=== PATIENT | male | born 1990 | race Caucasian/White ===

== ENCOUNTER 2018-03-30 15:38 | Observation (INO) ==
[2018-03-30] MEDS ORDERED: Acetaminophen 325 MG TABLET PO PRN (15:57)
[2018-03-30] MEDS ORDERED: Naloxone 0.4 MG/ML INJ IVP PRN (15:57)
[2018-03-30] MEDS ORDERED: Ondansetron 4 MG/2 ML VIAL IVP PRN (15:57)
[2018-03-30 16:56] LABS: Basophils # 0.1 K/mcL (0.0-0.2); Basophils % 0.6 %; Eosinophils # 0.2 K/mcL (0.0-0.6); Eosinophils % 1.4 %; Hematocrit 38.4 % (37.5-50.1); Hemoglobin 13.3 g/dL (12.9-16.9); Immature Granulocytes % 0.6 % (0-4); Lymphocytes # 1.1 K/mcL (0.6-4.6); Lymphocytes % 9.4 %; Mean Corpuscular HGB Conc 34.6 g/dL (31.6-35.5); Mean Corpuscular Hemoglobin 29.6 pg (28.0-33.3); Mean Corpuscular Volume 85.5 fL (83.0-100.0); Mean Platelet Volume 11.1 fL (9.4-12.4); Monocytes # 0.6 K/mcL (0.0-1.3); Monocytes % 5.1 %; Neutrophils # 9.7 K/mcL (1.6-8.9); Platelet Count 258 K/mcL (140-400); Red Blood Count 4.49 M/mcL (4.19-5.50); Red Cell Distribution Width 11.9 % (11.5-14.5); Segmented Neutrophils % 82.9 %
[2018-03-30] MEDS: 0.9 % Sodium Chloride 1,000 ML IVC SCH (16:58)
[2018-03-30] MEDS: Piperacillin/Tazobactam 3.375 GM in 0.9 % Sodium Chloride Mini Bag 100 ML IVPB SCH (16:59)
[2018-03-30 17:09] LABS: BUN/Creatinine Ratio 10 (6-26); Blood Urea Nitrogen 14 mg/dL (6-20); Calcium 9.9 mg/dL (8.6-10.3); Carbon Dioxide 26 mEq/L (23-29); Chloride 105 mEq/L (98-107); Glucose 84 mg/dL (70-105); Osmolality,Calculated 286 (280-300); Potassium 3.9 mEq/L (3.5-5.1); Sodium 138 mEq/L (136-145); eGFR For African Americans > 60 (> 60); eGFR For Non-African Americans > 60 (> 60)
--- NOTE | 2018-03-30 17:33 | Urology History & Physical ---
Date of Encounter: 03/30/18 Time of Encounter: 17:31 Assessment and Plan (1) Scrotal hematoma Current Visit: Yes Status: Acute 27-year-old man with a possible hematoma after vasectomy. I will order a scrotal ultrasound further assessment. In addition he may have epididymoorchitis. I will start him on Zosyn. If he has evidence of an abscess , we may need to proceed with incision and drainage of the scrotal abscess. He should continue with scrotal support. We will manage his pain with oral medications. I answered all of his questions. (2) Orchitis Current Visit: Yes Status: Acute History of Present Illness Chief complaint: scrotal swelling HPI: Mr. Paul is a 27 year old male who is status post bilateral vasectomy from 03/12/2018. He initially did well after the procedure, but he began to develop left scrotal swelling. He was seen by my partner and was started on antibiotic. He says in the last 2 days he is developed worsening left-sided swelling. He is having severe tenderness. He was seen in the office today. He was then admitted for IV antibiotic and further workup. He denies any fevers or chills. He denies any drainage from his wound. The swelling is very uncomfortable. Past Med Surg Social Fam HX - Past Medical History Medical history: seizures Additional medical history: Epilepsy. Psychiatric history: no psych history - Past Surgical History Surgical History: tonsilectomy, vasectomy Additional surgical history: Hydrocele, left forearm surgery, adnoid removal - Social History Smoking Status: Never smoker Smokeless Tobacco Status: Yes Alcohol use: none Drug use: none - Family History Mother Hx Family Cardiac Disorders: Yes Medications and Allergies Famotidine [Pepcid] 20 mg PO BID #14 tablet 04/01/16 [Rx] Ibuprofen [Motrin] 600 mg PO Q8HR #20 tab 10/06/16 [Rx] SUMAtriptan succinate [Imitrex] 25 mg PO Q12HR #3 tablet 02/02/17 [Rx] Permethrin [Elimite] 60 appl TP ONCE #60 g 07/28/17 [Rx] Cyclobenzaprine [Flexeril] 10 mg PO BID PRN #14 tablet 11/05/17 [Rx] 3 Allergy/AdvReac Type Severity Reaction Status Date / Time No Known Allergies Allergy Verified 02/20/18 06:11 Review of Systems - Constitutional no chills, no fever(s) - EENT Nose, mouth and throat: no dizziness - Cardiovascular no chest pain - Respiratory no dyspnea - Gastrointestinal no nausea, no vomiting - Genitourinary difficulty urinating, genital pain, no flank pain, no hematuria - Musculoskeletal no back pain - Integumentary no erythema, no rash - Neurological no weakness - Psychiatric no suicidal ideation - Hematologic/Lymphatic no easy bleeding - Allergic/Immunologic no wheezing Exam Initial Vital Signs Temp Pulse Resp BP Pulse Ox 98.7 F 88 15 126/87 97 03/30/18 16:15 03/30/18 16:15 03/30/18 16:15 03/30/18 16:15 03/30/18 16:15 - General physical appearance Present: well developed, well nourished, no distress - Eyes Absent: icteric - ENT Present: normal nares - Neck Present: trachea midline - Respiratory Present: normal respiratory effort - Abdomen Abdomen: Present: soft - Genitourinary other (Normal penis. Left hemiscrotum is indurated with large swelling above the left testicle. There is golfball size swelling above the right testicle. No evidence of fluctuance is noted.) - Neurologic Present: normal coordination - Musculoskeletal Present: normal gait Urology Results - Labs 03/30/18 16:19 03/30/18 16:19 Abnormal lab results WBC 11.7 K/mcL (4.3-11.1) H 03/30/18 16:19 Neutrophils # 9.7 K/mcL (1.6-8.9) H 03/30/18 16:19 Creatinine 1.42 mg/dL (0.70-1.30) H 03/30/18 16:19 Diabetes panel 03/30/18 Range/Units 16:19 Sodium 138 (136-145) mEq/L Potassium 3.9 (3.5-5.1) mEq/L Chloride 105 (98-107) mEq/L Carbon Dioxide 26 (23-29) mEq/L BUN 14 (6-20) mg/dL Creatinine 1.42 H (0.70-1.30) mg/dL Glucose 84 (70-105) mg/dL Calcium 9.9 (8.6-10.3) mg/dL Calcium panel 03/30/18 Range/Units 16:19 Calcium 9.9 (8.6-10.3) mg/dL Pituitary panel 03/30/18 Range/Units 16:19 Sodium 138 (136-145) mEq/L Potassium 3.9 (3.5-5.1) mEq/L Chloride 105 (98-107) mEq/L Carbon Dioxide 26 (23-29) mEq/L BUN 14 (6-20) mg/dL Creatinine 1.42 H (0.70-1.30) mg/dL Glucose 84 (70-105) mg/dL Calcium 9.9 (8.6-10.3) mg/dL Adrenal panel 03/30/18 Range/Units 16:19 Sodium 138 (136-145) mEq/L Potassium 3.9 (3.5-5.1) mEq/L Chloride 105 (98-107) mEq/L Carbon Dioxide 26 (23-29) mEq/L BUN 14 (6-20) mg/dL Creatinine 1.42 H (0.70-1.30) mg/dL Glucose 84 (70-105) mg/dL Calcium 9.9 (8.6-10.3) mg/dL All other labs normal.
[2018-03-30] MEDS: *HR* OxyCODONE Immed Rel 5 MG TABLET PO PRN (18:14)
[2018-03-30] MEDS: OXYCODONE Oral CONC 10 MG/0.5 ML ORAL.SYG SL PRN (22:48)
[2018-03-31] MEDS: Piperacillin/Tazobactam 3.375 GM in 0.9 % Sodium Chloride Mini Bag 100 ML IVPB SCH ×4 (00:06→23:57)
[2018-03-31] MEDS: *HR* OxyCODONE Immed Rel 5 MG TABLET PO PRN ×3 (04:04→17:59)
[2018-03-31] MEDS: 0.9 % Sodium Chloride 1,000 ML IVC SCH ×2 (04:05→15:25)
--- NOTE | 2018-03-31 07:56 | Urology Progress Note ---
Date of Encounter: 03/31/18 Time of Encounter: 07:53 - Assessment and Plan (1) Orchitis Current Visit: Yes Status: Acute (2) Scrotal abscess Current Visit: Yes Status: Acute Assessment and plan: 27-year-old man with a scrotal abscess after vasectomy. I recommend proceeding with an incision and drainage of the scrotal abscess. He was informed of the risks of the surgery which include but are not limited to bleeding, infection, injury to other structures, need for further procedures, pain, risks otherwise unforeseen, and the risk of anesthesia. He is willing to proceed. We will continue Zosyn. (3) Nicotine dependence Current Visit: Yes Status: Acute Assessment and plan: I will order a nicotine patch for him today. I advised him to stop using chewing tobacco. Qualifiers: Nicotine product type: chewing tobacco Qualified Code(s): F17.220 - Nicotine dependence, chewing tobacco, uncomplicated Progress Note Narrative: 27-year-old man status post vasectomy presented with a scrotal abscess. I reviewed the ultrasound yesterday. He says his pain is adequately controlled. He is still having significant swelling. Objective Initial Vital Signs Temp Pulse Resp BP Pulse Ox 98.7 F 88 15 126/87 97 03/30/18 16:15 03/30/18 16:15 03/30/18 16:15 03/30/18 16:15 03/30/18 16:15 - General physical appearance Present: well developed, well nourished, no distress - Respiratory Absent: normal respiratory effort - Abdomen Present: soft - Genitourinary Present: other (normal penis, left hemiscrotum is indurated. No fluctuance is noted. Right hemiscrotum is mildly swollen.) - Labs 03/30/18 16:19 03/30/18 16:19 Diabetes panel 03/30/18 Range/Units 16:19 Sodium 138 (136-145) mEq/L Potassium 3.9 (3.5-5.1) mEq/L Chloride 105 (98-107) mEq/L Carbon Dioxide 26 (23-29) mEq/L BUN 14 (6-20) mg/dL Creatinine 1.42 H (0.70-1.30) mg/dL Glucose 84 (70-105) mg/dL Calcium 9.9 (8.6-10.3) mg/dL Calcium panel 03/30/18 Range/Units 16:19 Calcium 9.9 (8.6-10.3) mg/dL Pituitary panel 03/30/18 Range/Units 16:19 Sodium 138 (136-145) mEq/L Potassium 3.9 (3.5-5.1) mEq/L Chloride 105 (98-107) mEq/L Carbon Dioxide 26 (23-29) mEq/L BUN 14 (6-20) mg/dL Creatinine 1.42 H (0.70-1.30) mg/dL Glucose 84 (70-105) mg/dL Calcium 9.9 (8.6-10.3) mg/dL Adrenal panel 03/30/18 Range/Units 16:19 Sodium 138 (136-145) mEq/L Potassium 3.9 (3.5-5.1) mEq/L Chloride 105 (98-107) mEq/L Carbon Dioxide 26 (23-29) mEq/L BUN 14 (6-20) mg/dL Creatinine 1.42 H (0.70-1.30) mg/dL Glucose 84 (70-105) mg/dL Calcium 9.9 (8.6-10.3) mg/dL Consult Discharge Plan - Plan Referrals: Leon Adams DO [Primary Care Provider] -
[2018-03-31] MEDS: Nicotine 21 MG PATCH.TD24 TD SCH (09:26)
[2018-03-31] MEDS: OXYCODONE Oral CONC 10 MG/0.5 ML ORAL.SYG SL PRN ×2 (11:52→20:37)
[2018-03-31 19:18] LABS: Bilirubin,Urine Negative (Negative); Blood,Urine Negative (Negative); Clarity,Urine Clear (Clear); Color,Urine Yellow (Yellow); Glucose,Urine (UA) Normal (Normal); Ketones,Urine Negative (Negative); Leukocyte Esterase,Urine Negative (Negative); Nitrite,Urine Negative (Negative); Protein,Urine Negative (Neg-Trace); Specific Gravity,Urine 1.013 (1.010-1.025); Urobilinogen,Urine Normal (Normal)
[2018-04-01] MEDS: 0.9 % Sodium Chloride 1,000 ML IVC SCH ×2 (01:33→12:30)
[2018-04-01] MEDS: *HR* OxyCODONE Immed Rel 5 MG TABLET PO PRN ×4 (02:26→21:01)
--- NOTE | 2018-04-01 07:07 | Urology Progress Note ---
Date of Encounter: 04/01/18 Time of Encounter: 07:05 - Assessment and Plan (1) Orchitis Current Visit: Yes Status: Acute (2) Scrotal abscess Current Visit: Yes Status: Acute Assessment and plan: 27-year-old man with concern for left scrotal abscess after vasectomy. We will proceed with an incision and drainage today. He is aware of all risks. Continue Zosyn. (3) Nicotine dependence Current Visit: Yes Status: Acute Qualifiers: Nicotine product type: chewing tobacco Qualified Code(s): F17.220 - Nicotine dependence, chewing tobacco, uncomplicated Progress Note Narrative: 27-year-old man with concern for left scrotal abscess after a vasectomy is seen today. Surgery was postponed yesterday secondary to OR availability. He is on the schedule today. No fevers overnight. Objective Initial Vital Signs Temp Pulse Resp BP Pulse Ox 98.7 F 88 15 126/87 97 03/30/18 16:15 03/30/18 16:15 03/30/18 16:15 03/30/18 16:15 03/30/18 16:15 - General physical appearance Present: well developed, well nourished, no distress - Respiratory Present: normal respiratory effort - Abdomen Present: soft - Genitourinary Present: other (circumcised, improved swelling on the right side. Left side still indurated and swollen.) - Labs 03/30/18 16:19 03/30/18 16:19 Consult Discharge Plan - Plan Referrals: Leon Adams DO [Primary Care Provider] -
[2018-04-01] MEDS: Piperacillin/Tazobactam 3.375 GM in 0.9 % Sodium Chloride Mini Bag 100 ML IVPB SCH ×2 (08:03→18:00)
[2018-04-01] MEDS: Nicotine 21 MG PATCH.TD24 TD SCH (08:04)
[2018-04-01] MEDS ORDERED: OXYCODONE Oral CONC 10 MG/0.5 ML ORAL.SYG SL PRN (14:34)
[2018-04-01] MEDS ORDERED: *HR* OxyCODONE Immed Rel 5 MG TABLET PO PRN ×2 (14:34→16:51)
[2018-04-01] MEDS ORDERED: *HR* FentaNYL (PF) 100 MCG/2 ML VIAL ONE (15:51)
[2018-04-01] MEDS ORDERED: *HR* Midazolam HCl 2 MG/2 ML VIAL ONE (15:51)
[2018-04-01] MEDS ORDERED: *HR* Propofol 200 MG/20 ML VIAL IVP ONE (15:52)
[2018-04-01] MEDS ORDERED: Lidocaine -MPF 2% 2 ML VIAL ONE (15:57)
--- NOTE | 2018-04-01 16:10 | Anesthesia Evaluation PreOp ---
Date of Encounter: 04/01/18 Time of Encounter: 16:10 - Past History Planned Operation: Incision Drainage Scrotal Abscess Cardiac History: Denies any Significant Hx Pulmonary History: Smoker DIGITAL DATA ANALYST History: Denies Any Significant HX Other Medical History: Denies Any Significant HX Anesthesia History: No Prior Anesthetic Complications Alcohol Use: none Drug use: none Medications and Allergies Ciprofloxacin HCl [Cipro] 500 mg PO BID 03/31/18 [History] 3 Allergy/AdvReac Type Severity Reaction Status Date / Time No Known Allergies Allergy Verified 02/20/18 06:11 - Meds/Allergy Pre-op Review Medications Reviewed: Yes Allergies Reviewed: Yes Beta Blockers on Current Med List: No Anesthesia Results - Labs 03/30/18 16:19 03/30/18 16:19 Laboratory Tests 03/30/18 03/30/18 16:19 16:19 Hgb 13.3 Hct 38.4 Plt Count 258 Sodium 138 Potassium 3.9 BUN 14 Creatinine 1.42 H Anesthesia Exam Vital Signs/O2 Sat/Glucose, Most Current Temp Pulse Resp BP Pulse Ox 04/01/18 14:01 98.3 F 86 16 119/79 95 Height: 5'11 Weight: 180 lbs NPO (# of Hours): MN Pain Scale: 0 - HEENT Pupil (Motor): Pupils equal, EOMI Mallampati: II Teeth: Normal Oral Opening: Greater than 3 - DIGITAL DATA ANALYST LOC: Oriented DIGITAL DATA ANALYST Motor: Normal RUE, Normal LUE, Normal RLE, Normal LLE, Normal Face DIGITAL DATA ANALYST Sensory: Normal: RUE, LUE, RLE, LLE, Face - Cardiac Rhythm: Regular Murmur: None JVD: No Carotid Bruit: No - Pulmonary Breath Sounds: bilateral Clear Respiratory Effort: Symmetrical Anesthesia Assess/Plan ASA Score: 2 Modified [place] Scale for Level of Consciousness: Cooperative, oriented, and tranquil Anesthetic Plan: General Monitoring Plan: Standard Monitors Recovery Plan: PACU (Discussed GA, agrees to proceed)
[2018-04-01] MEDS ORDERED: Famotidine 20 MG/2 ML VIAL ONE (16:11)
[2018-04-01] MEDS ORDERED: Ondansetron 4 MG/2 ML VIAL ONE (16:23)
[2018-04-01] MEDS ORDERED: Dexamethasone 4 MG/ML VIAL ONE (16:23)
[2018-04-01] MEDS ORDERED: *HR* Morphine 10 MG/ML VIAL ONE (16:33)
[2018-04-01] MEDS ORDERED: Acetaminophen IV 1,000 MG/100 ML INFUS..BTL ONE (16:34)
--- NOTE | 2018-04-01 16:47 | Operative Note ---
Date of procedure: 04/01/18 Pre-op diagnosis: Scrotal abscess Post-op diagnosis: same Procedure: Incision and drainage of scrotal abscess Implants: Quarter-inch packing strips Complications: None Anesthesia: GETA Surgeon: Gadiel Sandoval Was there an pediatric dental assistant present: No Estimated blood loss (cc): 5 Specimen: Aerobic and anaerobic cultures Condition: stable Disposition: PACU Procedure in Detail: Indications: Mr. Paul is a 27-year-old gentleman who has a history of undergoing a vasectomy. He developed significant left hemiscrotal swelling. He was admitted for IV antibiotic and a ultrasound showed concern for abscess. He elected to undergo a incision and drainage of scrotal abscess. He is aware of the risks of the procedure including but not limited to bleeding, infection, injury to other structures, loss of testicle, need for further procedures, and the risk of anesthesia. He is willing to proceed. Procedure in detail: After informed consent was obtained Mr. Paul was brought back to the operating room and placed in the supine position. A timeout was performed. General anesthesia was then administered and a LMA was placed. He was then placed in the lithotomy position. His genitalia were prepped and draped in the usual sterile fashion. A 1 cm incision was made over top of the fluctuant area, just to the left and lateral the median raphae. The pocket was probed with the hemostats. Purulent fluid emanated out. A sample of this was sent for culture. I aspirated all the pus. The wound was irrigated. I was able to insert my finger and break up any adhesions. Hemostasis was achieved from the skin using cautery. The wound was packed with a quarter inch packing strips. Dry sterile dressings were applied a jockstrap was applied to the wound as well. The patient was then awakened from general anesthesia and brought to the recovery room in good condition. All sponge, needle, and instrument counts were correct.
[2018-04-01] MEDS ORDERED: *HR* Morphine 2 MG/ML SYRINGE IVP PRN (16:51)
[2018-04-01] MEDS ORDERED: *HR* Promethazine 25 MG/ML VIAL IVP PRN (16:51)
--- NOTE | 2018-04-01 17:26 | Anesthesia Evaluation Post Op ---
Date of Encounter: 04/01/18 Time of Encounter: 17:30 - Vital Signs Vital Signs: Vital Signs/O2 Sat/Glucose, Most Current Temp Pulse Resp BP Pulse Ox 04/01/18 17:26 97.6 F 86 16 118/84 94 04/01/18 17:16 97.6 F 91 16 125/85 94 04/01/18 17:06 97.4 F L 90 16 116/85 99 04/01/18 14:01 98.3 F 86 16 119/79 95 - Lungs Lungs: Clear Ascult./Percussion - Airway Airway: Non-obstructed - Cardiovascular Regular Rate - Mental Status Mental Status: Alert & Oriented, Answers Appropriately - Pain Pain Scale: 1 - Nausea Vomiting Nausea Vomiting: Not Present - Hydration Hydration: Ice chips - Discharge PostOp Status: Transfer Patient to floor
[2018-04-01] MEDS ORDERED: Naloxone 0.4 MG/ML INJ IVP PRN (17:58)
[2018-04-01] MEDS ORDERED: Acetaminophen 325 MG TABLET PO PRN (17:58)
[2018-04-01] MEDS ORDERED: Ondansetron 4 MG/2 ML VIAL IVP PRN (17:58)
[2018-04-01] MEDS: OXYCODONE Oral CONC 10 MG/0.5 ML ORAL.SYG SL PRN (18:37)
[2018-04-02] MEDS: OXYCODONE Oral CONC 10 MG/0.5 ML ORAL.SYG SL PRN ×4 (01:20→18:12)
[2018-04-02] MEDS: Piperacillin/Tazobactam 3.375 GM in 0.9 % Sodium Chloride Mini Bag 100 ML IVPB SCH ×3 (01:20→18:11)
[2018-04-02 01:57] LABS: Hematocrit 42.9 % (37.5-50.1); Mean Corpuscular HGB Conc 34.7 g/dL (31.6-35.5); Mean Corpuscular Hemoglobin 29.7 pg (28.0-33.3); Mean Corpuscular Volume 85.5 fL (83.0-100.0); Mean Platelet Volume 10.8 fL (9.4-12.4); Platelet Count 292 K/mcL (140-400); Red Blood Count 5.02 M/mcL (4.19-5.50); Red Cell Distribution Width 11.5 % (11.5-14.5)
[2018-04-02 02:16] LABS: BUN/Creatinine Ratio 9 (6-26); Blood Urea Nitrogen 10 mg/dL (6-20); Calcium 9.6 mg/dL (8.6-10.3); Carbon Dioxide 28 mEq/L (23-29); Chloride 102 mEq/L (98-107); Glucose 153 mg/dL (70-105); Osmolality,Calculated 286 (280-300); Potassium 4.4 mEq/L (3.5-5.1); Sodium 137 mEq/L (136-145); eGFR For African Americans > 60 (> 60); eGFR For Non-African Americans > 60 (> 60)
[2018-04-02 02:21] LABS: Hemoglobin 14.9 g/dL (12.9-16.9)
--- NOTE | 2018-04-02 07:26 | Urology Progress Note ---
Date of Encounter: 04/02/18 Time of Encounter: 07:24 - Assessment and Plan (1) Scrotal abscess Current Visit: Yes Status: Acute Assessment and plan: s/p scrotal I&D. POD #1. 1. Anticipate dressing change this afternoon at around 12-12:30pm. Will request pain medication to be given prior to dressing change. 2. Continue zosyn. 3. Anticipate d/c home tomorrow. 4. Will have nurses change dressing tomorrow morning and provide patient with teaching and supplies. (2) Nicotine dependence Current Visit: Yes Status: Acute Assessment and plan: Continue nicotine patch. Qualifiers: Nicotine product type: chewing tobacco Qualified Code(s): F17.220 - Nicotine dependence, chewing tobacco, uncomplicated Progress Note Narrative: Doing well. Pain is more intense this morning. Pain medication has been requested. Tolerating diet. Objective Initial Vital Signs Temp Pulse Resp BP Pulse Ox 98.7 F 88 15 126/87 97 03/30/18 16:15 03/30/18 16:15 03/30/18 16:15 03/30/18 16:15 03/30/18 16:15 - General physical appearance Present: well developed, well nourished, no distress - Respiratory Present: normal respiratory effort - Abdomen Present: soft - Genitourinary Present: other (Packing in place. Mild staining of gauze overtop of wound.) - Integumentary Present: no rash - Labs 04/02/18 01:35 04/02/18 01:35 Diabetes panel 04/02/18 Range/Units 01:35 Sodium 137 (136-145) mEq/L Potassium 4.4 (3.5-5.1) mEq/L Chloride 102 (98-107) mEq/L Carbon Dioxide 28 (23-29) mEq/L BUN 10 (6-20) mg/dL Creatinine 1.12 (0.70-1.30) mg/dL Glucose 153 H (70-105) mg/dL Calcium 9.6 (8.6-10.3) mg/dL Calcium panel 04/02/18 Range/Units 01:35 Calcium 9.6 (8.6-10.3) mg/dL Pituitary panel 04/02/18 Range/Units 01:35 Sodium 137 (136-145) mEq/L Potassium 4.4 (3.5-5.1) mEq/L Chloride 102 (98-107) mEq/L Carbon Dioxide 28 (23-29) mEq/L BUN 10 (6-20) mg/dL Creatinine 1.12 (0.70-1.30) mg/dL Glucose 153 H (70-105) mg/dL Calcium 9.6 (8.6-10.3) mg/dL Adrenal panel 04/02/18 Range/Units 01:35 Sodium 137 (136-145) mEq/L Potassium 4.4 (3.5-5.1) mEq/L Chloride 102 (98-107) mEq/L Carbon Dioxide 28 (23-29) mEq/L BUN 10 (6-20) mg/dL Creatinine 1.12 (0.70-1.30) mg/dL Glucose 153 H (70-105) mg/dL Calcium 9.6 (8.6-10.3) mg/dL - VTE Documentation of Mechanical Device: Intermittent pneumatic compression device Consult Discharge Plan - Plan Referrals: Leon Adams DO [Primary Care Provider] -
[2018-04-02] MEDS: Nicotine 21 MG PATCH.TD24 TD SCH (07:58)
[2018-04-02] MEDS: *HR* OxyCODONE Immed Rel 5 MG TABLET PO PRN (10:45)
[2018-04-03] MEDS: Piperacillin/Tazobactam 3.375 GM in 0.9 % Sodium Chloride Mini Bag 100 ML IVPB SCH ×2 (00:40→08:47)
[2018-04-03 06:34] VITALS: BP 113/72
--- NOTE | 2018-04-03 08:30 | Discharge Summary ---
Orders not resulted at time of discharge: Pending orders 03/31/18 19:05 Culture,Urine [RM] Routine 04/01/18 16:35 Culture,Anaerobic [RM] Routine Culture,Wound [RM] Routine Date of Encounter: 04/03/18 Time of Encounter: 08:36 - Discharge Diagnosis (1) Scrotal abscess Priority: Primary Status: Acute (2) Nicotine dependence Priority: Secondary Status: Acute Qualifiers: Nicotine product type: chewing tobacco Substance use status: uncomplicated Qualified Code(s): F17.220 - Nicotine dependence, chewing tobacco, uncomplicated - Hospital Course Hospital course: Mr. Paul is a 27 year old male who underwent a vasectomy previously. He developed left hemiscrotal swelling. A scrotal ultrasound showed evidence of abscess. On 04/01/2018 he underwent an incision and drainage of his scrotal abscess. Cultures grew out Staphylococcus aureus. His dressings were changed daily. On 04/03/2018 he was discharged home in good condition. - Time Spent with Patient Total time spent providing and/or coordinating discharge services: Less than 30 minutes Labs on day of discharge: Labs from last 24 hours 04/02/18 13:19 POC Glucose 111 H Preliminary micro results at discharge 04/01/18 16:35 Wound Culture - Preliminary Scrotum Staphylococcus aureus 03/31/18 19:05 Urine Culture - Preliminary Urine,Clean Catch No growth. - Impressions ITS Impressions Scrotum Ultrasound 03/30/18 16:01 IMPRESSION: Asymmetric increased blood flow to the right testicle questioning orchitis. Asymmetric increased blood flow to the left epididymis questioning epididymitis. Abnormal thickening of the subcutaneous tissues of the scrotum with complex cystic lesion left of midline measuring 3.3 cm x 2.5 cm x 2.8 cm worrisome for cellulitis and possible abscess formation. D/ / 03/30/2018 18:32:54 Toan Clark MD / lana Interpreting Provider: Toan Clark MD - Discharge Medications Prescriptions: OxyCODONE/APAP 10/325 [Percocet 10/325 MG] 1 each PO Q4HR PRN 7 Days #28 tablet PRN Reason: Pain Cephalexin [Keflex] 500 mg PO Q6H #40 capsule Docusate [Colace] 100 mg PO BID #60 capsule Nicotine [Nicotine Patch] 1 each TD DAILY #30 patch.td24 Home Medications: Ciprofloxacin HCl [Cipro] 500 mg PO BID 03/31/18 [History] Cephalexin [Keflex] 500 mg PO Q6H #40 capsule 04/03/18 [Rx] Docusate [Colace] 100 mg PO BID #60 capsule 04/03/18 [Rx] Nicotine [Nicotine Patch] 1 each TD DAILY #30 patch.td24 04/03/18 [Rx] OxyCODONE/APAP 10/325 [Percocet 10/325 MG] 1 each PO Q4HR PRN 7 Days #28 tablet 04/03/18 [Rx] Allergies/Adverse Reactions: 3 Allergy/AdvReac Type Severity Reaction Status Date / Time No Known Allergies Allergy Verified 02/20/18 06:11 Date of admission: 03/30/18 15:43 Primary care physician: Leon Adams DO Discharging clinician: Gadiel Sandoval Anticipated date of discharge: 04/03/18 Exam Initial Vital Signs Temp Pulse Resp BP Pulse Ox 98.7 F 88 15 126/87 97 03/30/18 16:15 03/30/18 16:15 03/30/18 16:15 03/30/18 16:15 03/30/18 16:15 - General physical appearance Present: well developed, well nourished, no distress - Eyes Absent: icteric - ENT Present: normal nares - Neck Present: trachea midline - Cardiovascular Cardiovascular exam IM: RRR - Abdomen Abdomen: Present: soft - Genitourinary other (circumcised penis, open left hemiscrotal wound with packing.) - Neurologic Present: normal coordination - Musculoskeletal Present: normal gait - Patient Status Disposition: Home, Self-Care Condition: Good Functional capacity at discharge: independent ambulation Overall status at discharge: patient is progressing back to baseline - Discharge Instructions Follow Up With: Leon Adams DO [Primary Care Provider] - Gadiel Sandoval MD [Partnered Physician] - (2 weeks for wound check.) Additional Instructions: 1. No heavy lifting greater than 20 pounds x2 weeks. 2. No tub baths x2 weeks. 3. May shower. 4. He should follow up in 2 weeks for postoperative check. 5. He should return for any fevers, chills, nausea, vomiting, or significant swelling/ecchymosis. 6. He should change his packing every day with the 1/4" packing strips. Please provide extra packing strips, 4x4s, and ABD pads. 7. He should get a 2 week work excuse. - Diet and Activity Activity: increase activity as tolerated Diet: advance to your usual diet - VTE Documentation of Mechanical Device: Intermittent pneumatic compression device
[2018-04-03] MEDS: *HR* OxyCODONE Immed Rel 5 MG TABLET PO PRN (08:46)
[2018-04-03] MEDS: Nicotine 21 MG PATCH.TD24 TD SCH (08:47)
== END 2018-04-03 10:47 | disposition home or self-care (01) ==
LOC: 3ANU
PROVIDERS: ADMIT Urology; ATTEND Urology